=== PATIENT | male | born 1955 | race Caucasian/White ===

== ENCOUNTER 2018-03-23 00:19 | Outpatient (CLI) | payer BC, SELFPAY ==
--- NOTE | 2018-03-23 07:47 | DI.MRI_ITS ---
SYMPTOM/DIAGNOSIS: HEADACHE, R51 BRAIN MRI: 03/23/18 MRI examination of the brain was performed according to the usual protocol. Ventricular system is normal in appearance. The orbital and temporal bone structures appear intact. There is normal flow void in the [place] vasculature. Pituitary is unremarkable. There appear to be a couple of small left lacunar infarcts. Probable tiny pontine infarcts also seen in the midline and to the left of the midline. Diffusion weighted imaging shows no evidence of acute or subacute infarct. Susceptibility weighted imaging shows no evidence of intracranial hemorrhage. CONCLUSION: No evidence of acute intracranial process.
== END 2018-03-23 00:39 ==
PROVIDERS: PCP Emergency Medicine; Visit Provider Emergency Medicine
DX: R51 Headache (principal); G46.7 Other lacunar syndromes
CPT/HCPCS: 70551

== ENCOUNTER 2018-10-25 03:47 | Outpatient (CLI) | payer BC, SELFPAY ==
--- NOTE | 2018-10-25 15:33 | DI.MRI_ITS ---
SYMPTOMS/DIAGNOSIS: CHRONIC LOW BACK PAIN, M54.32, BILATERAL LEG PAIN, ? DISC LUMBOSACRAL SPINE MRI: MRI examination of the lumbosacral spine was performed according to the usual protocol. There are peridiscal vertebral signal changes, particularly at L3-4 and L5-S1 consistent with disc degeneration, and there is multilevel signal loss and loss of disc height throughout the lumbar region. The conus medullaris appears intact. No significant findings at L1-2 or L2-3. At L3-4, there is a prominent disc bulge and there is facet arthropathy. There is mild narrowing of the lateral recesses of the spinal canal bilaterally. There is mild central canal spinal stenosis. At L4-5, there is moderate disc bulge without focal disc herniation. There is narrowing of the left lateral recess. There is mild bilateral neural foraminal stenosis, left greater than right. At L5-S1, there is mild disc bulge and facet hypertrophy bilaterally. There is mild bilateral neural foraminal stenosis, left greater than right. CONCLUSION: Multilevel disc bulges, no gross disc herniation. Mild bilateral central canal spinal stenosis at L3-4 and L4-5, left greater than right at each level. Mild central canal spinal stenosis at L3-4.
== END 2018-10-25 04:07 ==
PROVIDERS: PCP Emergency Medicine; Visit Provider Chiropractor
DX: M54.32 Sciatica, left side (principal); M54.5 Low back pain; G89.29 Other chronic pain; M79.604 Pain in right leg; M79.605 Pain in left leg; M51.17 Intervertebral disc disorders with radiculopathy, lumbosacral region; M48.061 Spinal stenosis, lumbar region without neurogenic claudication
CPT/HCPCS: 72148

== ENCOUNTER 2019-10-30 13:18 | Outpatient (CLI) | payer OTHER, SELFPAY ==
--- NOTE | 2019-10-30 13:15 | DI.RAD_ITS ---
EXAM: XR SHOULDER RT COMPLETE 2+V CLINICAL HISTORY: right shoulder injury. TECHNIQUE: 2D digital imaging was performed. P and axis were performed. COMPARISON: No exams were available for comparison FINDINGS: BONES: No acute fracture is present. No bony destructive lesion is seen. There is an old healed fract ure deformity of the clavicle. JOINTS: No dislocation present. There are mild to moderate degenerative changes of the AC joint and g lenohumeral joint. SOFT TISSUE: Normal. IMPRESSION: Old clavicle fracture. Mild to moderate degenerative changes DATA REPOSITORY: RADIATION DOSE DELIVERED:
--- NOTE | 2019-10-30 13:15 | DI.RAD_ITS ---
EXAM: XR TIB/FIB RT CLINICAL HISTORY: fu injury to right leg TECHNIQUE: 2D digital imaging was performed. COMPARISON: DX Tib Fib RT from 10/25/2019 FINDINGS: There has been no change in the alignment of the previously noted fracture of mid fibula. The knee a nd ankle are unremarkable as visualized. IMPRESSION: .
--- NOTE | 2019-10-30 13:43 | DI.RAD_ITS ---
EXAM: XR ANKLE RT COMPLETE CLINICAL HISTORY: right ankle injury TECHNIQUE: 2D digital imaging was performed. COMPARISON: No exams were available for comparison FINDINGS: No acute fracture is identified. Are smoothly marginated small bony densities beneath the tips of marjan th malleoli. A stress view was performed which shows slight widening of the medial ankle mortise. N o talar dome defect is seen. There is a small calcaneal spur. IMPRESSION: Mild ankle mortise widening with stress.
== END 2019-10-30 13:38 ==
PROVIDERS: PCP Emergency Medicine; Referring Provider Emergency Medicine; Visit Provider Student in an Organized Health Care Education/Training Program
DX: S99.911A Unspecified injury of right ankle, initial encounter (principal); S89.91XA Unspecified injury of right lower leg, initial encounter; M19.011 Primary osteoarthritis, right shoulder
CPT/HCPCS: 73030; 73590; 73610

== ENCOUNTER 2020-01-03 03:26 | Outpatient (CLI) | payer OTHER, SELFPAY ==
--- NOTE | 2020-01-03 07:00 | DI.MRI_ITS ---
EXAM: MR UPPER JOINT RT WO CLINICAL HISTORY: Rotator cuff tear TRAUMATIC,S46.011D. TECHNIQUE: Multiplanar multisequence MRI was performed. COMPARISON: CR XR SHOULDER RT COMPLETE 2+V from 10/30/2019 FINDINGS: BONES: There is no fracture or contusion pattern. JOINTS: Moderate degenerative changes are seen at the acromioclavicular joint. Degenerative changes are also seen at the greater tuberosity. The glenohumeral joint is normal. TENDONS: Supraspinatus: Tendinosis of the supraspinatus tendon. No evidence of a full-thickness tear. Infraspinatus: Unremarkable. Subscapularis: Mild tendinosis of the subscapularis tendon. Teres Minor: Unremarkable. Biceps and Rudd: Unremarkable. MUSCLES: Unremarkable. GLENOID LABRUM: Unremarkable on this noncontrast examination. Note is made of a sublabral foramen. SOFT TISSUES: Unremarkable. LIGAMENTS: Unremarkable. OTHER: There is fluid seen in the subacromial subdeltoid bursa. There is a small amount of fluid in the subcoracoid bursa. IMPRESSION: 1. Subscapularis and supraspinatus tendinosis. No evidence of a rotator cuff tear. 2. Subacromial subdeltoid bursitis. 3. Moderate degenerative changes of the acromioclavicular joint. DATA REPOSITORY:
== END 2020-01-03 03:46 ==
PROVIDERS: PCP Emergency Medicine; Visit Provider Student in an Organized Health Care Education/Training Program
DX: M75.51 Bursitis of right shoulder (principal); M19.011 Primary osteoarthritis, right shoulder; M77.8 Other enthesopathies, not elsewhere classified
CPT/HCPCS: 73221

== ENCOUNTER 2020-02-12 02:32 | Outpatient (CLI) | payer OTHER, SELFPAY ==
[2020-02-12 10:38] LABS: Anion Gap 8.6 mmol/L (3-11); BUN 21 mg/dL (7-18); CO2 28.4 mmol/L (21.0-32.0); CREATININE 1.01 mg/dL (0.70-1.30); Calcium 8.9 mg/dL (8.5-10.1); Calculated LDL 159 mg/dL (<100); Chloride 103 mmol/L (98-107); Cholesterol 252 mg/dL (<200); Glucose 91 mg/dL (74-106); HDL Cholesterol 46 mg/dL (40-60); Potassium 3.9 mmol/L (3.5-5.1); Sodium 140 mmol/L (136-145); Triglyceride 235 mg/dL (<150)
[2020-02-12 18:54] LABS: PSA, Diagnostic 3.9 ng/mL (0.0-4.5)
== END 2020-02-12 02:52 ==
PROVIDERS: PCP Emergency Medicine; Visit Provider Emergency Medicine
DX: I10 Essential (primary) hypertension (principal); R97.20 Elevated prostate specific antigen [PSA]
CPT/HCPCS: 36415; 80048; 80061; 84153

== ENCOUNTER 2021-01-25 00:19 | Outpatient (CLI) | payer MEDICARE, SELFPAY ==
--- NOTE | 2021-01-25 08:00 | ETT_ITS ---
APPROVED REPORT Exam: Exercise Treadmill Patient Location: Out-Patient Room/Bed: Stress Nurse: Janell Nichole RN Ordering Provider:AGUILAR BEAUCHAMP, Contact Number: [phone] BMI: 27.52 Baseline Rhythm: Sinus Rhythm Indications: Exertional dyspnea. Medical History Medical History: HLD, Former smoker, HTN Cardiac Medications: Lisinopril, Hydrochlorothiazide, Rosuvastatin, Magnesium, Sildenafil Allergies: No known drug allergies Cardiac Risk Factors: FHX of CAD, Hyperlipidemia, HTN, Smoking (former) Previous Cardiac Procedures: None. Pretest Chest Pain Characteristics: None. Exercise History: Sedentary Physical Disabilities: None Lung Sounds: Clear to auscultation Heart Sounds: Regular Stress Test Details Test: Exercise stress testing was performed using a David protocol. Rest Stress HR Resting HR Supine: 62 bpm Max Heart Rate (APMHR): 156 bpm Resting HR Standin bpm Target HR (85% APMHR): 132 bpm Max HR Achieved: 158 bpm % of APMHR: 101 Recovery HR: 94 bpm HR response to stress: Normal HR response to stress BP Resting BP Supine: 126/72 mmHg Resting BP Standin/72 mmHg Max BP: 168/80 mmHg Recovery BP: 146/70 mmHg BP response to stress: Normal blood pressure response to stress. ECG Resting ECG: Sinus Rhythm Ectopy: None Stress ECG: Sinus Tachycardia ST Change: No significant ST segment changes noted Arrhythmia: None Recovery ECG: Sinus Rhythm Recovery ST Change: No significant ST segment changes noted Recovery Arrhythmia: Rare PVC Clinical Reason for Termination: Fatigue Stress Symptoms: Dyspnea, General Fatigue Exercise duration: 11 min59 sec Highest Stage Reached: Stage 4: 4.2 mph at 16% grade. Exercise capacity: 13.48 METs Chan Treadmill Score: 11 Rate Pressure Product: [id number] Stress ECG Conclusion 1. The patient exercised for 12 minutes (13 METS). The patient had no symptoms suggestive of ischemi a. 2. There is no evidence of ischemia on the ECG portion of the exam. Chan Treadmill Score is 11 which is Low risk. Stress Test Summary STAGE Time (mins) Speed (mph) Grade (%) HR BP SYMPTOMS METS Supine 62 126/72 Standing 88 128/72 SpO2 97% 1 3 1.7 10 119 136/68 SpO2 97% mild/mod SOB 4.6 2 6 2.5 12 128 140/70 SpO2 98% mod SOB 7 3 9 3.4 14 136 144/72 SpO2 98% 10.2 4 12 4.2 16 156 12.9 1 min recovery 145 146/72 SpO2 98% 3 min recovery 103 168/80 6 min recovery 94 146/70
== END 2021-01-25 00:39 ==
PROVIDERS: PCP Emergency Medicine; Visit Provider Emergency Medicine
DX: R06.00 Dyspnea, unspecified (principal); Z82.49 Family history of ischemic heart disease and other diseases of the circulatory system; E78.5 Hyperlipidemia, unspecified; I10 Essential (primary) hypertension; Z87.891 Personal history of nicotine dependence
CPT/HCPCS: 93016; 93018; 93017

== ENCOUNTER 2021-01-26 02:42 | Outpatient (CLI) | payer MEDICARE, SELFPAY ==
[2021-01-26 08:48] LABS: Anion Gap 7.8 mmol/L (3-11); BUN 20 mg/dL (7-18); CO2 30.2 mmol/L (21.0-32.0); Calcium 8.7 mg/dL (8.5-10.1); Calculated LDL 111 mg/dL (<100); Chloride 105 mmol/L (98-107); Cholesterol 191 mg/dL (<200); Glucose 98 mg/dL (74-106); HDL Cholesterol 53 mg/dL (40-60); Sodium 143 mmol/L (136-145); Triglyceride 139 mg/dL (<150)
[2021-01-26 17:56] LABS: PSA, Diagnostic 4.7 ng/mL (0.0-4.5)
== END 2021-01-26 02:43 | disposition home or self-care (01) ==
LOC: LBO 02:42
PROVIDERS: PCP Emergency Medicine; Visit Provider Emergency Medicine
DX: C61 Malignant neoplasm of prostate (principal); E78.5 Hyperlipidemia, unspecified; I10 Essential (primary) hypertension; R97.20 Elevated prostate specific antigen [PSA]
CPT/HCPCS: 36415; 80048; 80061; 84153

== ENCOUNTER → 2021-04-13 07:50 | Outpatient (BNVA) | payer MEDICARE, SELFPAY | PROVIDERS: PCP Family Medicine; Referring Provider Emergency Medicine; Visit Provider Urology | DX: R82.998 Other abnormal findings in urine (principal); R97.20 Elevated prostate specific antigen [PSA] | CPT/HCPCS: 99205 ==

== ENCOUNTER 2021-07-26 03:45 | Outpatient (CLI) | payer MEDICARE, SELFPAY ==
[2021-07-27 19:29] LABS: Free PSA/PSA Ratio 0.22 ratio
== END 2021-07-26 03:46 | disposition home or self-care (01) ==
LOC: LBO 03:45
PROVIDERS: PCP Family Medicine; Visit Provider Urology
DX: R97.20 Elevated prostate specific antigen [PSA] (principal)
CPT/HCPCS: 84154

== ENCOUNTER → 2021-08-03 08:00 | Outpatient (BNVA) | payer MEDICARE, SELFPAY | PROVIDERS: PCP Family Medicine; Referring Provider Family Medicine; Visit Provider Urology | DX: N40.0 Benign prostatic hyperplasia without lower urinary tract symptoms (principal); R97.20 Elevated prostate specific antigen [PSA] | CPT/HCPCS: 99215 ==

== ENCOUNTER → 2021-09-10 10:50 | Outpatient (BNVA) | payer MEDICARE, SELFPAY | PROVIDERS: PCP Nurse Practitioner Family; Referring Provider Family Medicine; Visit Provider Urology | DX: R97.20 Elevated prostate specific antigen [PSA] (principal) | CPT/HCPCS: 99213 ==

== ENCOUNTER 2022-03-11 01:20 | Outpatient (CLI) | payer MEDICARE, SELFPAY ==
[2022-03-11 09:36] LABS: Estimated GFR 83.01 (mL/min/1.73m2)
[2022-03-11 10:02] LABS: Calculated LDL 161 mg/dL (<100); Cholesterol 245 mg/dL (<200); HDL Cholesterol 54 mg/dL (40-60); Triglyceride 154 mg/dL (<150)
[2022-03-11 10:35] LABS: Hemoglobin A1C 5.6 % (<5.7)
[2022-03-12 12:09] LABS: Free PSA/PSA Ratio 0.25 ratio
== END 2022-03-11 01:21 | disposition home or self-care (01) ==
LOC: LBO 01:20
PROVIDERS: PCP Nurse Practitioner Family; Visit Provider Urology
DX: I10 Essential (primary) hypertension (principal); E78.5 Hyperlipidemia, unspecified; R97.20 Elevated prostate specific antigen [PSA]; Z79.899 Other long term (current) drug therapy
CPT/HCPCS: 36415; 80061; 82565; 83036; 84132; 84154

== ENCOUNTER → 2022-03-18 09:49 | Outpatient (BNVA) | payer MEDICARE, SELFPAY | PROVIDERS: PCP Nurse Practitioner Family; Referring Provider Nurse Practitioner Family; Visit Provider Urology | DX: R97.20 Elevated prostate specific antigen [PSA] (principal) | CPT/HCPCS: 99213 ==

== ENCOUNTER 2022-09-09 01:45 | Outpatient (CLI) | payer MEDICARE, SELFPAY ==
[2022-09-09 20:54] LABS: PSA, Diagnostic 3.7 ng/mL (<=4.5)
== END 2022-09-09 01:46 | disposition home or self-care (01) ==
LOC: LBO 01:46
PROVIDERS: PCP Nurse Practitioner Family; Visit Provider Urology
DX: R97.20 Elevated prostate specific antigen [PSA] (principal)
CPT/HCPCS: 36415; 84153

== ENCOUNTER → 2022-09-23 13:51 | Outpatient (BNVA) | payer MEDICARE, SELFPAY | PROVIDERS: PCP Nurse Practitioner Family; Visit Provider Urology | DX: I10 Essential (primary) hypertension (principal); R97.20 Elevated prostate specific antigen [PSA] | CPT/HCPCS: 99213 ==

== ENCOUNTER 2023-02-17 03:27 | Outpatient (CLI) | payer MEDICARE, SELFPAY ==
[2023-02-17 08:43] LABS: CREATININE 1.1 mg/dL (0.70-1.30); Calculated LDL 171 mg/dL (<100); Cholesterol 270 mg/dL (<200); Estimated GFR 73.58 (mL/min/1.73m2); HDL Cholesterol 57 mg/dL (40-60); Potassium 3.9 mmol/L (3.5-5.1); Triglyceride 212 mg/dL (<150)
== END 2023-02-17 03:28 | disposition home or self-care (01) ==
PROVIDERS: PCP Nurse Practitioner Family; Visit Provider Nurse Practitioner Family
DX: I10 Essential (primary) hypertension (principal); E78.5 Hyperlipidemia, unspecified
CPT/HCPCS: 36415; 80061; 82565; 84132

== ENCOUNTER → 2023-02-28 01:06 | Outpatient (CLI) | payer MEDICARE, SELFPAY ==
--- NOTE | 2023-02-28 07:06 | DI.RAD_ITS ---
Exam(s) XR HIP PELVIS ADULT BL EXAM: XR HIP PELVIS ADULT BL CLINICAL HISTORY: Failing PT,BILAT HIP PAIN,M25.551,M25.552. TECHNIQUE: 2D digital imaging was performed. COMPARISON: CT ABD PELVIS WITH CONTRAST from 05/02/2016 FINDINGS: 3 views No evidence of pelvic nor hip fracture but there are advanced osteoarthritic degenerative changes in both hips noted with [id number] narrowing of the superior aspect of both hip joints. Also marginal osteophytes of both femoral heads. Bone density normal. No osseous lesions. IMPRESSION: Advanced degenerative narrowing of both hip joints. DATA REPOSITORY: RADIATION DOSE DELIVERED:
== END ==
PROVIDERS: PCP Nurse Practitioner Family; Visit Provider Nurse Practitioner Family
DX: M16.0 Bilateral primary osteoarthritis of hip (principal)
CPT/HCPCS: 73521

== ENCOUNTER 2023-03-24 02:53 | Outpatient (CLI) | payer MEDICARE, SELFPAY ==
[2023-03-24 18:31] LABS: PSA, Diagnostic 4.6 ng/mL (<=4.5)
== END 2023-03-24 02:54 | disposition home or self-care (01) ==
LOC: LBO 02:54
PROVIDERS: PCP Nurse Practitioner Family; Visit Provider Urology
DX: R97.20 Elevated prostate specific antigen [PSA] (principal)
CPT/HCPCS: 36415; 84153

== ENCOUNTER → 2023-03-31 14:24 | Outpatient (BNVA) | payer MEDICARE, SELFPAY | PROVIDERS: PCP Nurse Practitioner Family; Visit Provider Urology | DX: N40.0 Benign prostatic hyperplasia without lower urinary tract symptoms (principal); R97.20 Elevated prostate specific antigen [PSA] | CPT/HCPCS: 99214 ==

== ENCOUNTER 2023-05-22 08:48 | Outpatient (CLI) | payer MEDICARE, SELFPAY ==
--- NOTE | 2023-05-22 08:45 | RT.EKG_ITS ---
APPROVED REPORT Exam: Resting ECG Reason for Exam: Surgery scheduled 06/13/23 Patient Location: O HR:65 bpm ECG Measurements Heart Rate 65 AXIS IN 140 P 51 QRSd 101 QRS -22 QT 384 T 29 QTc 400 Conclusion Sinus rhythm...normal P axis, V-rate 50- 99 Borderline left axis deviation...QRS axis (-15,-29) Abnormal R-wave progression, early transition...QRS area>0 in V2
== END 2023-05-22 08:49 | disposition home or self-care (01) ==
LOC: DI.CM 08:49
PROVIDERS: PCP Nurse Practitioner Family; Visit Provider Nurse Practitioner Family
DX: Z01.818 Encounter for other preprocedural examination (principal)
CPT/HCPCS: 93010

== ENCOUNTER 2023-10-06 01:40 | Outpatient (CLI) | payer MEDICARE, SELFPAY | END 2023-10-06 01:41 | disposition home or self-care (01) | LOC: LBO 01:41 | PROVIDERS: PCP Nurse Practitioner Family; Visit Provider Urology | DX: R97.20 Elevated prostate specific antigen [PSA] (principal) | CPT/HCPCS: 36415; 84153 ==

== ENCOUNTER → 2023-10-13 09:58 | Outpatient (BNVA) | payer MEDICARE, SELFPAY | PROVIDERS: PCP Nurse Practitioner Family; Visit Provider Urology | DX: N42.89 Other specified disorders of prostate (principal); R97.20 Elevated prostate specific antigen [PSA] | CPT/HCPCS: 99214 ==

== ENCOUNTER 2024-02-20 02:21 | Outpatient (CLI) | payer MEDICARE, SELFPAY ==
[2024-02-20 08:23] LABS: Anion Gap 8.6 mmol/L (3-11); BUN 15 mg/dL (7-18); CO2 28.4 mmol/L (21.0-32.0); CREATININE 1.1 mg/dL (0.70-1.30); Calcium 9.2 mg/dL (8.5-10.1); Calculated LDL 150 mg/dL (<100); Chloride 106 mmol/L (98-107); Cholesterol 239 mg/dL (<200); Estimated GFR 73.12 (mL/min/1.73m2); Glucose 104 mg/dL (74-106); HDL Cholesterol 57 mg/dL (40-60); Potassium 4.1 mmol/L (3.5-5.1); Sodium 143 mmol/L (136-145); Triglyceride 163 mg/dL (<150)
== END 2024-02-20 02:22 | disposition home or self-care (01) ==
LOC: LBO 02:21
PROVIDERS: PCP Nurse Practitioner Family; Visit Provider Nurse Practitioner Family
DX: Z13.1 Encounter for screening for diabetes mellitus (principal); Z13.6 Encounter for screening for cardiovascular disorders
CPT/HCPCS: 36415; 80048; 80061

== ENCOUNTER 2024-08-26 02:47 | Outpatient (CLI) | payer MEDICARE, SELFPAY ==
--- NOTE | 2024-08-26 06:30 | DI.US_ITS ---
Exam(s) US HERNIA EXAM: US HERNIA CLINICAL HISTORY: right groin pain,r10.31. TECHNIQUE: Ultrasound was performed using standard protocol. COMPARISON: No exams were available for comparison FINDINGS: Dedicated ultrasound examination of the area of clinical concern in the right groin inguinal region was performed. Submitted images and cine loop reveal a containing inguinal hernia which is best demonstrated with the patient standing and performing Valsalva. Sac measurement is 5.5 x 1.2 x 3.7 cm and the neck is approximately 1.8 cm wide. There do not appear to be obvious bowel loops within the hernia sac. IMPRESSION: Right inguinal fat containing hernia with measurements as above. DATA REPOSITORY:
== END 2024-08-26 03:07 ==
LOC: DI 02:47
PROVIDERS: PCP Nurse Practitioner Family; Visit Provider Nurse Practitioner Family
DX: K40.90 Unilateral inguinal hernia, without obstruction or gangrene, not specified as recurrent (principal)
CPT/HCPCS: 76857

== ENCOUNTER 2024-10-04 00:47 | Outpatient (CLI) | payer MEDICARE, SELFPAY ==
[2024-10-04 18:28] LABS: PSA, Diagnostic 4.5 ng/mL (<=4.5)
== END 2024-10-04 00:48 | disposition home or self-care (01) ==
LOC: LBO 00:47
PROVIDERS: PCP Nurse Practitioner Family; Visit Provider Urology
DX: R97.20 Elevated prostate specific antigen [PSA] (principal)
CPT/HCPCS: 36415; 84153

== ENCOUNTER → 2024-11-01 08:24 | Outpatient (BNVA) | payer MEDICARE, SELFPAY | PROVIDERS: PCP Nurse Practitioner Family; Visit Provider Urology | DX: N40.0 Benign prostatic hyperplasia without lower urinary tract symptoms (principal); R97.20 Elevated prostate specific antigen [PSA] | CPT/HCPCS: 99213 ==

== ENCOUNTER 2025-02-05 09:49 | Outpatient (CLI) | payer MEDICARE, SELFPAY ==
[2025-02-05 14:51] LABS: Anion Gap 9.2 mmol/L (3-11); BUN 19 mg/dL (9-23); CO2 27.8 mmol/L (20.0-31.0); Calcium 9.4 mg/dL (8.3-10.6); Chloride 102 mmol/L (98-107); Cholesterol 236 mg/dL (<200); Glucose 85 mg/dL (74-106); HDL Cholesterol 56 mg/dL (>or=40); Potassium 3.9 mmol/L (3.5-5.1); Sodium 139 mmol/L (136-145)
== END 2025-02-05 09:50 | disposition home or self-care (01) ==
PROVIDERS: PCP Nurse Practitioner Family; Visit Provider Nurse Practitioner Family
DX: Z13.6 Encounter for screening for cardiovascular disorders (principal); I10 Essential (primary) hypertension
CPT/HCPCS: 36415; 80048; 80061